=== PATIENT | female | born 1985 | race Caucasian/White ===

== ENCOUNTER 2016-07-05 20:36 | Emergency (ER) ==
[2016-07-05] MEDS ORDERED: PHENERGAN 25 MG/ML VIAL IM STA (20:53)
[2016-07-05] MEDS ORDERED: MORPHINE 4 MG/ML SYRINGE IM STA (20:53)
[2016-07-05] MEDS ORDERED: LIDOCAINE 1 % AMP 5 ML (SUTURES) IM STA (20:53)
[2016-07-05] MEDS ORDERED: ROCEPHIN IM STA (20:53)
[2016-07-05 21:02] VITALS: BP 136/67; TEMP 98.7; BMI 36.6
[2016-07-05 21:02] LABS: BASOPHILS % (AUTO) 0.1 % (0.0-3.0); EOSINOPHILS # (AUTO) 0.3 K/ul (0.0-0.7); EOSINOPHILS % (AUTO) 3.7 % (0.0-7.0); HEMATOCRIT 38.8 % (37.0-47.0); HEMOGLOBIN 12.1 g/dl (12.0-16.0); IMMATURE GRANULOCYTE % (AUTO) 0.2 % (0.0-5.0); LYMPHOCYTES # (AUTO) 1.9 K/uL (0.60-3.4); LYMPHOCYTES % (AUTO) 22.5 (10.0-50.0); MEAN CORPUSCULAR HEMOGLOBIN 26.8 pg (27.0-31.0); MEAN CORPUSCULAR HGB CONC 31.2 (31.8-35.4); MONOCYTES # (AUTO) 0.4 K/uL (0.4-2.0); MONOCYTES % (AUTO) 4.8 (0-10); NEUTROPHILS # (AUTO) 5.7 K/ul (2.0-6.9); NEUTROPHILS % (AUTO) 68.7; PLATELET COUNT 245 10^3/uL (140-440); RED BLOOD COUNT 4.51 10^6/ul (4.20-5.40); WHITE BLOOD COUNT 8.31 K/ul (4.6-10.2)
[2016-07-05 21:17] LABS: FLU INTERNAL QC INTERNAL QC VALID; RAPID FLU A NEGATIVE (NEGATIVE); RAPID FLU B NEGATIVE (NEGATIVE)
[2016-07-05 21:18] LABS: SERUM PREGNANCY INTERNAL QC INTERNAL QC VALID
[2016-07-05 21:22] LABS: ALBUMIN 3.6 g/dL (3.4-5.0); ALBUMIN/GLOBULIN RATIO 0.97; ANION GAP 13.5; BILIRUBIN,TOTAL 0.21 mg/dL (0.00-1.20); BUN/CREATININE RATIO 18.91; CREATININE 0.74 mg/dL (0.60-1.30); POTASSIUM 3.5 mmol/L (3.5-5.10); TOTAL PROTEIN 7.3 g/dL (6.4-8.2)
--- NOTE | 2016-07-05 21:53 | CT ---
Exam: CT of the abdomen and pelvis without contrast History: Left lower quadrant pain Technique: [address] of the abdomen and pelvis without intravascular contrast FINDINGS: The lung bases are clear. No significant liver abnormality. The adrenals, pancreas and sp leladn are unremarkable. The stomach and hiatus are unremarkable. The gallbladder appears normal. Kidn eys and proximal collecting system are unremarkable. The appendix is normal. Bowel loops demonstrate normal caliber. No inflamatory change seen in the mesentery or retroperitoneum. Vascular structures appear normal by noncontrast CT. Colonic diverticulosis of the sigmoid. No inflammation of the pelvic fat. No free pelvic fluid. N ormal urinary bladder. No acute findings of the skeleton. Impression: 1. No inflammatory process, bowel or urinary obstruction is seen. 2. Colonic diverticulosis
[2016-07-05 21:55] LABS: BILIRUBIN,URINE Negative (NEGATIVE); KETONES,URINE Negative (NEGATIVE); LEUKOCYTE ESTERASE ,URINE 1+ (NEGATIVE); NITRITE,URINE Negative (NEGATIVE); PH,URINE 6.5 (5-9); PROTEIN,URINE Negative (NEGATIVE); URINE, BLOOD 1+ (NEGATIVE)
[2016-07-05 21:56] LABS: ADD URINE MICROSCOPIC YES
[2016-07-05 22:07] LABS: TRICHOMONAS,URINE MODERATE (NOT PRESENT)
--- NOTE | 2016-07-05 22:38 | CT ---
EXAM: CT of the head without contrast. HISTORY: Earache. COMPARISON: None available. TECHNIQUE: Noncontrast CT of the head. FINDINGS: No intracranial hemorrhage or mass effect is identified. There is mild prominence of the sulci. The ventricles are normal in size and configuration. No rogers white matter differentiation loss is seen to suggest an acute infarct. The calvarium is intact. The visualized paranasal sinuses are unopacified. The bilateral mastoid air cells are well-aerated. No significant middle ear opacification is seen on coronal images. No govind ss external auditory canal wall thickening is seen. IMPRESSION: No evidence of an acute intracranial process. The bilateral mastoid air cells and middle ears appear well-aerated.
--- NOTE | 2016-07-05 22:54 | ED.PDOC ---
General ED Provider: Dr. BRUCE CERON-ER Chief Complaint: Earache Stated Complaint: my ear hurts..also having some pelvic pain Time Seen by Physician: 20:40 Mode of Arrival: Ambulance Information Source: Patient, Family Exam Limitations: No limitations Nursing and Triage Documentation Reviewed and Agree: Yes EENT Complaint Exam - Ear Complaint/Exam Onset/Duration: 20min Symptoms Are: Still present Timing: Constant Initial Severity: Mild Current Severity: Mild Character: Reports: Dull pain, Aching pain Aggravating: Reports: None Alleviating: Reports: None Associated Signs and Symptoms: Reports: URI symptoms. Denies: Ear trauma, Ear swelling, Discharge, Fever, Hearing loss, Bleeding, Sore throat, Headache, Foreign body sensation, Rash, Pain to external ear, Pain to external face Related History: Reports: Similar Episode Ear Surgical History: None Vesicles to External Pinna: No Vesicles to Tragus: No TMJ Tenderness: None Mastoid Tenderness: None Tragal Tenderness: None External Canal: Normal Tympanic Membrane: Erythema, Dullness Differential Diagnoses: Otitis Media Review of Systems - Review Of Systems Constitutional: Reports: No symptoms Eyes: Reports: No symptoms Ears, Nose, Mouth, Throat: Reports: Ear pain Respiratory: Reports: No symptoms Cardiac: Reports: No symptoms GI: Reports: Abdominal pain : Reports: No symptoms Musculoskeletal: Reports: No symptoms Skin: Reports: No symptoms Neurological: Reports: No symptoms Endocrine: Reports: No symptoms Hematologic/Lymphatic: Reports: No symptoms All Other Systems: Reviewed and Negative Past Medical History - Past Medical History Endocrine: Reports: None Cardiovascular: Reports: Hypertension Respiratory: Reports: None Hematological: Reports: None Gastrointestinal: Reports: None Genitourinary: Reports: None Neuro/Psych: Reports: Bipolar Disorder Musculoskeletal: Reports: None Cancer: Reports: None Last Menstrual Period: last month - Surgical History General Surgical History: Reports: Tubal ligation, - Family History Family History: Reports: None - Social History Smoking Status: Current every day smoker, Heavy tobacco smoker Hx Substance Use: No Alcohol Screening: None Lives: With family Physical Exam - Physical Exam Appearance: Well-appearing, No pain distress, Well-nourished Pain Distress: Mild Eyes: TOO, EOMI, Conjunctiva clear ENT: Ears normal, Nose normal, Oropharynx normal Neck: Supple Respiratory: Airway patent Cardiovascular: RRR, Pulses normal, No rub, No murmur GI/: Soft, Nontender, No masses, Bowel sounds normal, No Organomegaly Musculoskeletal: Normal strength Skin: Warm Neurological: Sensation intact Psychiatric: Affect appropriate, Mood appropriate Interpretation - Radiology Interpretation Radiology Interpretation By: Radiologist Radiology Results: Negative Exam Interpreted: CT Scan Re-Evaluation - Re-Evaluation Time of Re-Evaluation: 22:54 Status: Improved Vital Signs Stable: Yes Pain Level: 1 Appearance: NAD Lungs: Clear Skin: Warm and Dry Neuro: Alert and Oriented X3 CV: RRR Critical Care Note - Critical Care Note Total Time (mins): 0 Course - Course Hematology/Chemistry: 07/05/16 20:57 07/05/16 20:57 Orders, Labs, Meds: Lab Review 07/05/16 07/05/16 20:57 21:50 WBC 8.31 RBC 4.51 Hgb 12.1 Hct 38.8 MCV 86.0 MCH 26.8 L MCHC 31.2 L RDW Coeff of Ty 13.2 Plt Count 245 Immature Gran % (Auto) 0.2 Neut % (Auto) 68.7 Lymph % (Auto) 22.5 [place] % (Auto) 4.8 Eos % (Auto) 3.7 Baso % (Auto) 0.1 Immature Gran # (Auto) 0.0 Neut # 5.7 Lymph # 1.9 [place] # 0.4 Eos # 0.3 Baso # 0.0 Sodium 141 Potassium 3.5 Chloride 105 Carbon Dioxide 26 Anion Gap 13.5 BUN 14 Creatinine 0.74 Estimated GFR (MDRD) 91.00 BUN/Creatinine Ratio 18.91 Glucose 94 Calcium 9.0 Total Bilirubin 0.21 AST 5 L ALT 13 Alkaline Phosphatase 73 Total Protein 7.3 Albumin 3.6 Globulin 3.7 Albumin/Globulin Ratio 0.97 Amylase 25 Lipase 14 Serum , Qual Negative Urine Color Yellow Urine Clarity Clear Urine pH 6.5 Ur Specific [place] >=1.030 Urine Protein Negative Urine Glucose (UA) Negative Urine Ketones Negative Urine Blood 1+ Urine Nitrite Negative Urine Bilirubin Negative Urine Urobilinogen 1.0 Ur Leukocyte Esterase 1+ Urine Microscopic RBC 5-10 Urine Microscopic WBC 2-5 Ur Squamous Epith Cells 10-20 Urine Trichomonas Moderate Influenza A (Rapid) Negative Influenza B (Rapid) Negative Orders Category Date Time Status AMYLASE Stat LAB 07/05/16 20:57 Completed CBC W/ AUTO DIFF Stat LAB 07/05/16 20:57 Completed COMPREHENSIVE METABOLIC PANEL Stat LAB 07/05/16 20:57 Completed LIPASE Stat LAB 07/05/16 20:57 Completed MOLECULAR GROUP A STREP Stat LAB 07/05/16 20:57 Results RAPID FLU A/B Stat LAB 07/05/16 20:57 Completed SERUM Stat LAB 07/05/16 20:57 Completed STREP SCREEN Stat LAB 07/05/16 20:57 Results URINALYSIS C & S IF INDICATED Stat LAB 07/05/16 21:50 Completed Ceftriaxone Sodium [Rocephin] MEDS 07/05/16 20:53 Discontinued 1 gm IM ONCE STA Lidocaine HCl/Pf [Lidocaine 1 % Amp 5 ml (Sutures)] MEDS 07/05/16 20:53 Discontinued 2.1 ml IM ONCE STA Morphine Sulfate [Morphine 4 mg/ml Syringe] MEDS 07/05/16 20:53 Discontinued 4 mg IM ONCE STA Promethazine HCl [Phenergan 25 mg/ml Vial] MEDS 07/05/16 20:53 Discontinued 25 mg IM ONCE STA CT ABDOMEN/PELVIS WO CONTRAST Stat RADS 07/05/16 20:[address] HEAD W/O CONTRAST Stat RADS 07/05/16 20:52 Completed Medications Discontinued Medications Generic Name Dose Route Start Last Admin Trade Name Albertoq PRN Reason Stop Dose Admin Ceftriaxone Sodium 1 gm 07/05/16 20:53 07/05/16 21:21 Rocephin IM 07/05/16 20:54 1 gm ONCE STA Administration Lidocaine HCl 2.1 ml 07/05/16 20:53 07/05/16 21:20 Lidocaine 1 % Amp 5 Ml (Sutures) IM 07/05/16 20:54 2.1 ml ONCE STA Administration Morphine Sulfate 4 mg 07/05/16 20:53 07/05/16 21:23 Morphine 4 Mg/Ml Syringe IM 07/05/16 20:54 4 mg ONCE STA Administration Promethazine HCl 25 mg 07/05/16 20:53 07/05/16 21:26 Phenergan 25 Mg/Ml Vial IM 07/05/16 20:54 25 mg ONCE STA Administration Vital Signs: Temp Pulse Resp BP Pulse Ox 07/05/16 20:38 98.7 F 82 20 136/67 99 Departure - Departure Time of Disposition: 22:54 Disposition: HOME SELF-CARE Discharge Problem: Trichomonal vaginitis Otitis media Qualifiers: Otitis media type: unspecified Laterality: right Chronicity: unspecified Qualifier Code: (H66.91) Otitis media, unspecified, right ear Instructions: Trichomoniasis (ED) Condition: Good Pt referred to PMD for follow-up: Yes Additional Instructions: augmentin 875mg bid x 7days--flagyl 500mg tid x 10 days=--f/u with pcp Allergies/Adverse Reactions: Allergies No Known Drug Allergies Adverse Reaction (Verified 07/05/16 20:47) Home Medications: Ambulatory Orders 1 [No Reported Medications] 07/05/16 Disposition Discussed With: Patient, Family
== END 2016-07-05 23:02 | disposition home or self-care (01) ==
LOC: ED 20:36
DX: H66.91 Otitis media, unspecified, right ear (principal); A59.01 Trichomonal vulvovaginitis; F17.210 Nicotine dependence, cigarettes, uncomplicated
CPT/HCPCS: 36415; 80053; 81001; 82150; 83690; 84703; 85025; 87651; 87804; 87880; 96372; 99283

== ENCOUNTER 2016-07-23 20:04 | Emergency (ER) ==
[2016-07-23 20:06] VITALS: BMI 36.6
[2016-07-23 20:14] VITALS: BP 141/87; TEMP 98.9
--- NOTE | 2016-07-23 20:30 | ED.PDOC ---
General ED Provider: Dr. ADONIS DEL CID Chief Complaint: Non-specific Complaint Stated Complaint: Was in ER on 07/05/16 for abd pain. Was diagnosed with Trichamonous. States Dr. Irving left a message with her mother to get rechecked. Was put on Flagyl and Amoxil and states completed both meds. Denies any vaginal symptoms but but is still nauseated Time Seen by Physician: 20:30 Mode of Arrival: Walk-In Information Source: Patient Exam Limitations: No limitations Nursing and Triage Documentation Reviewed and Agree: Yes Review of Systems - Review Of Systems Constitutional: Reports: No symptoms Eyes: Reports: No symptoms Ears, Nose, Mouth, Throat: Reports: No symptoms Respiratory: Reports: No symptoms Cardiac: Reports: No symptoms GI: Reports: No symptoms : Reports: No symptoms Musculoskeletal: Reports: No symptoms Skin: Reports: No symptoms Neurological: Reports: No symptoms Endocrine: Reports: No symptoms Hematologic/Lymphatic: Reports: No symptoms All Other Systems: Reviewed and Negative Past Medical History - Past Medical History Endocrine: Reports: None Cardiovascular: Reports: Hypertension Respiratory: Reports: None Hematological: Reports: None Gastrointestinal: Reports: None Genitourinary: Reports: None Neuro/Psych: Reports: Bipolar Disorder Musculoskeletal: Reports: None Cancer: Reports: None Last Menstrual Period: last month - Surgical History General Surgical History: Reports: Tubal ligation, - Family History Family History: Reports: None - Social History Smoking Status: Current every day smoker, Heavy tobacco smoker Hx Substance Use: No Alcohol Screening: None - Immunizations Tetanus Shot up to Date: Yes Physical Exam - Physical Exam Appearance: Obese Eyes: TOO, EOMI, Conjunctiva clear ENT: Ears normal, Nose normal, Oropharynx normal Respiratory: Airway patent, Breath sounds clear, Breath sounds equal, Respirations nonlabored Cardiovascular: RRR, Pulses normal, No rub, No murmur GI/: Soft, Nontender, No masses, Bowel sounds normal, No Organomegaly Musculoskeletal: Normal strength, ROM intact, No edema, No calf tenderness Skin: Warm, Dry, Normal color Neurological: Sensation intact, Motor intact, Cranial nerves intact, Alert, Oriented Psychiatric: Anxious Critical Care Note - Critical Care Note Total Time (mins): 0 Course - Course Orders, Labs, Meds: Lab Review 07/23/16 20:25 Urine Color Yellow Urine Clarity Clear Urine pH 6.0 Ur Specific [place] 1.025 Urine Protein Negative Urine Glucose (UA) Negative Urine Ketones Negative Urine Blood Trace-intact Urine Nitrite Negative Urine Bilirubin Negative Urine Urobilinogen 0.2 Ur Leukocyte Esterase Negative Urine Microscopic RBC 2-5 Urine Microscopic WBC 0-2 Ur Squamous Epith Cells 2-5 Urine Bacteria Trace Urine Mucus 1+ Orders Category Date Time Status UA [URINALYSIS C & S IF INDICATED] Stat LAB 07/23/16 20:25 Completed Vital Signs: Temp Pulse Resp BP Pulse Ox 07/23/16 20:08 98.9 F 91 H 20 141/87 H 99 Departure - Departure Time of Disposition: 20:51 Disposition: HOME SELF-CARE Discharge Problem: Normal exam Instructions: Sexually Transmitted Diseases (ED), Condom Use (ED), Safe Sex (ED ) Condition: Good Pt referred to PMD for follow-up: Yes Allergies/Adverse Reactions: Allergies No Known Drug Allergies Adverse Reaction (Verified 07/05/16 20:47) Home Medications: Ambulatory Orders 1 [No Reported Medications] 07/05/16 Disposition Discussed With: Patient, Family
[2016-07-23 20:33] LABS: BILIRUBIN,URINE Negative (NEGATIVE); KETONES,URINE Negative (NEGATIVE); LEUKOCYTE ESTERASE ,URINE Negative (NEGATIVE); NITRITE,URINE Negative (NEGATIVE); PROTEIN,URINE Negative (NEGATIVE); URINE, BLOOD Trace-intact (NEGATIVE)
[2016-07-23 20:40] LABS: ADD URINE MICROSCOPIC YES; BACTERIA,URINE TRACE (NOT PRESENT)
== END 2016-07-23 21:03 | disposition home or self-care (01) ==
LOC: ED 20:04
DX: Z00.00 Encounter for general adult medical examination without abnormal findings (principal); I10 Essential (primary) hypertension; F17.210 Nicotine dependence, cigarettes, uncomplicated
CPT/HCPCS: 81001; 99283